=== PATIENT | female | born 1985 | race Caucasian/White ===

== ENCOUNTER 2020-12-24 15:10 | Emergency (ER) | payer OTHER, SELFPAY ==
--- NOTE | 2020-12-24 15:17 | ED.URI ---
HPI - URI/Sore Throat General Chief Complaint: Upper Respiratory Infection Stated Complaint: Upper resp Time Seen by Provider: 12/24/20 15:17 Source: patient and RN notes reviewed History of Present Illness HPI Narrative: Patient is a 35-year-old female who presents the urgent care with complaints of cough, nasal drainage, fatigue, headache, sore throat and body aches since Tuesday. Patient has not taken anything [id number] for her symptoms because she was not sure what she could take with diclofenac . Patient denies of any Covid exposures. No other acute complaints. Acute distress noted. Patient read the plan of care. Some parts of this dictation were generated by voice recognition software and may contain typographical and/or grammatical inaccuracies. Related Data Home Medications Medication Instructions Recorded Confirmed diclofenac potassium 50 mg PO TID 12/24/20 12/24/20 Allergies Allergy/AdvReac Type Severity Reaction Status Date / Time nitrofurantoin Allergy Intermediate Hives Verified 12/24/20 15:35 [From Macrobid] Review of Systems Review of Systems: CONSTITUTIONAL: Reports of fever, chills, fatigue EYES: Denies visual changes, redness, or discharge. ENT: Reports rhinorrhea, nasal congestion, sore throat CARDIOVASCULAR: Denies chest pain, palpitations, or edema. RESPIRATORY: Reports of cough without dyspnea GASTROINTESTINAL: Denies abdominal pain, nausea, vomiting, or diarrhea. GENITOURINARY: Denies dysuria or hematuria. SKIN: Denies rash or itching. MUSCULOSKELETAL: Denies back pain, joint pain. Reports body aches NEUROLOGIC: Reports of headache All other systems reviewed are negative, except as documented in HPI. PMFSH Comments At the time of my signature, I reviewed and agree with the nursing past medical, surgical, social, and family history. There is no relevant family history pertinent to the patient complaint. Exam Narrative: GENERAL: This is a well-nourished, well-developed patient, in no apparent distress. HEAD: normocephalic, atraumatic. EYES: PERRL. Sclera clear/white. Vision is grossly intact. EARS: External ears normal, auditory canals clear and without drainage, TMs normal without perforation. Hearing grossly intact. NOSE: External nose normal with no obvious nasal discharge, nares without redness, no rhinorrhea. THROAT: Mucous membranes moist, posterior pharynx clear. NECK: Neck supple, non-tender without lymphadenopathy, masses or thyromegaly. CARDIOVASCULAR: Regular rate and rhythm without murmurs, gallops, or rubs. RESPIRATORY: Clear to auscultation. Breath sounds equal bilaterally. No wheezes, rales, or rhonchi. SKIN: warm, intact with no suspicious lesions or rash, good texture and turgor. NEURO: awake, alert, and oriented to person, place and time. There were no obvious focal neurologic abnormalities. EXTREMITIES: No clubbing, cyanosis, or edema. Course Vital Signs Vital signs: Vital Signs Temperature 98.3 F 12/24/20 15:21 Pulse Rate 89 12/24/20 15:21 Respiratory Rate 16 12/24/20 15:21 Blood Pressure 129/88 12/24/20 15:21 Pulse Oximetry 99 12/24/20 15:21 Temperature 98.3 F 12/24/20 15:21 Pulse Rate 89 12/24/20 15:21 Respiratory Rate 16 12/24/20 15:21 Blood Pressure 129/88 12/24/20 15:21 Pulse Oximetry 99 12/24/20 15:21 Reviewed MDM - URI/Sore Throat MDM Narrative Medical decision making narrative: Reviewed lab results with the patient. She is aware that Covid swab, flu swab and strep swab were all negative. Educated patient on culture we will call within 72 hours if strep culture is positive and antibiotics necessary. Advised the patient to continue Tylenol as needed. Take a daily antihistamine such as Benadryl/Zyrtec or Claritin. Use Flonase nasal spray for postnasal drainage. Complete the steroid regimen as prescribed. Be sure to eat and drink with the medication. Increase your water intake and rest. Follow-up with your
[2020-12-24 15:21] VITALS: BP 129/88; PULSE 89; RESP 16; TEMP 36.8; O2SAT 99
== END 2020-12-24 16:10 | disposition home or self-care (01) ==
PROVIDERS: Emergency Provider Nurse Practitioner Family
DX: J06.9 Acute upper respiratory infection, unspecified (principal); Z20.822 Contact with and (suspected) exposure to COVID-19
CPT/HCPCS: 87081; 87426; 87804; 87880; 99213; C9803; G0463

== ENCOUNTER 2021-02-22 08:06 | Emergency (ER) | payer OTHER, SELFPAY ==
[2021-02-22 08:14] VITALS: BP 125/69; PULSE 86; RESP 16; TEMP 38.1; O2SAT 99
--- NOTE | 2021-02-22 08:20 | ED.NAVMDI ---
HPI - Nausea/Vomiting/Diarrhea General Chief complaint: Nausea/Vomiting/Diarrhea Stated complaint: poss food poisoning Time Seen by Provider: 02/22/21 08:20 Source: patient, RN notes reviewed and old records reviewed Mode of arrival: ambulatory Limitations: no limitations History of Present Illness HPI Narrative: 35-year-old female who presents to Express Care with complaints of feeling weak, having nausea with vomiting, chills and body aches, headache and some right sided sore throat since yesterday and is febrile at time of triage.Patient states that she can't keep anything down thinks she may have food poisoning. Patient has not had COVID or flu vaccinations.Patient has not taken anything OTC for her symptoms MD elicited complaint: nausea, vomiting and diarrhea Related Data Home Medications Medication Instructions Recorded Confirmed diclofenac potassium 50 mg PO TID 12/24/20 02/22/21 Prozac 02/22/21 Allergies Allergy/AdvReac Type Severity Reaction Status Date / Time nitrofurantoin Allergy Intermediate Hives Verified 02/22/21 08:20 [From Macrobid] latex Allergy Hives Verified 02/22/21 08:21 Review of Systems Review of Systems: CONSTITUTIONAL: Positive for fever, chills, or sweats. EYES: Denies visual changes, redness, or discharge. ENT: Denies rhinorrhea, congestion, mild sore throat, no otalgia. CARDIOVASCULAR: Denies chest pain, palpitations, or edema. RESPIRATORY: Positive cough no dyspnea. GASTROINTESTINAL: Denies abdominal pain,Positive nausea, vomiting, no diarrhea. GENITOURINARY: Denies dysuria or hematuria. SKIN: Denies rash or itching. MUSCULOSKELETAL: Denies back pain, joint pain, positive for body aches NEUROLOGIC: Positive headache,no numbness, or weakness. PSYCHIATRIC: Positive for history of anxiety or depression. All systems reviewed & are unremarkable except as noted in HPI and below PMFSH Past Medical History Medical History (Updated 02/23/21 @ 00:01 by Luisa Hayden) Tendinitis of both feet Surgical History Surgical History (Updated 02/22/21 @ 08:34 by Breanna Briseno NP) History of cervical cerclage Family History Family History (Updated 02/22/21 @ 08:34 by Breanna Briseno NP) Grandparent Cerebrovascular accident Diabetes mellitus Social History Social History (Updated 02/22/21 @ 08:35 by Breanna Briseno NP) Smoking packs per day: 1 Smoking cigarettes per day: 20.0 Years smoked: 20 Smoking pack-years: 20.00 Smoking status: Current every day smoker Alcohol intake: former Alcohol use details: no alcohol for 3 month decided to quit use completely Substance use: current Substance use type: marijuana Last use: occasional use Living arrangements: alone Gender identity (if verbalized by the patient): Female Comments At time of signature, agree with nursing past medical, surgical, social and family history. There is no relevant family history pertinent to the presenting complaint Exam Narrative: GENERAL: Ill-appearing, well-nourished, obese and in no acute distress. HEAD: Normocephalic, atraumatic. EYES: PERRLA and EOMI. ENT: Nares clear, no rhinorrhea or epistaxis. Mucous membranes moist.TM's normal with dull light reflex, throat mild redness with no lesions or exudates, no acute tonsil swelling pain right side of throat stated. NECK: Supple.no lymphadenopathy CHEST: Clear to auscultation. No respiratory distress.SAO2 99% on room air HEART: Regular rate and rhythm. No murmur heard. Normal peripheral pulses. ABDOMEN: Soft, nontender, nondistended, normal active bowel sounds.nausea and vomiting EXTREMITIES: Normal range of motion. No edema. SKIN: Warm, dry, no rash. NEURO: No focal deficits. Alert and oriented x3. Course Course Level of Care: Express Care Visit Vital Signs Vital signs: Vital Signs Temperature 38.1 C H 02/22/21 08:14 Pulse Rate 86 02/22/21 08:14 Respiratory Rate 16 02/22/21 08:14 Blood Pressure 125/69
== END 2021-02-22 08:50 | disposition home or self-care (01) ==
PROVIDERS: Emergency Provider Registered Nurse; PCP Student in an Organized Health Care Education/Training Program
DX: U07.1 COVID-19 (principal); F17.210 Nicotine dependence, cigarettes, uncomplicated; F12.90 Cannabis use, unspecified, uncomplicated
CPT/HCPCS: 87081; 87426; 87804; 87880; 99213; C9803; G0463

== ENCOUNTER 2021-11-26 08:30 | Emergency (ER) | payer OTHER, SELFPAY ==
--- NOTE | ~2021-11-26 | XR_ITS ---
EXAMINATION: XR abdomen/kub 1V DATE: 11/26/2021 09:32 INDICATION: Anterior and right-sided back and flank pain TECHNIQUE: A supine view of the abdomen on 2 radiographs was obtained. COMPARISON: None. FINDINGS: A D projects in expected position of the central pelvis. There are few <2 mm densities in the pelvis most likely representing phleboliths although differential would include distal ureteral stone. No de nsities suspicious for urolithiasis in the more cephalad abdomen. Normal bowel gas pattern. Mild elev ation of left hemidiaphragm. Lung bases are clear. Heart size is normal. IMPRESSION: 1. A few 2 mm densities in the pelvis, all of the majority representing phleboliths, but with differe ntial including distal ureteral stone. 2. IUD Reviewed, dictated and finalized at location A. IMPRESSION: 1. A few 2 mm densities in the pelvis, all of the majority representing phlebol iths, but with differential including distal ureteral stone. 2. IUD
[2021-11-26 08:40] VITALS: BP 135/71; PULSE 71; RESP 16; TEMP 36.4; O2SAT 100
--- NOTE | 2021-11-26 09:16 | ED.FEMALEGU ---
HPI - Female Genitourinary General Chief complaint: Urogenital-Female Stated complaint: Urinary Problem Time Seen by Provider: 11/26/21 09:00 Source: patient, RN notes reviewed and old records reviewed Mode of arrival: ambulatory Limitations: no limitations History of Present Illness HPI Narrative: 36-year-old female who presents to the [facility] care with complaints of right-sided flank pain radiating to right mid abdomen for the past 2 days and has noticed some blood when she wipes after urinating. Patient verbalizes some decreased urination today, no burning or pain with urination.Patient reports that she has no nausea or vomiting or diarrhea, no vaginal discharge or itching or any concerns for STD's. Patient denies any known injury to her back. MD elicited complaint: UTI Onset (ago): day(s) (2) Location of symptoms: low back and flank (right) Severity: severe Severity scale (1-10): 8 Quality of pain: sharp Consistency: constant Related Data Allergies Allergy/AdvReac Type Severity Reaction Status Date / Time nitrofurantoin Allergy Intermediate Hives Verified 11/26/21 09:13 [From [place]] latex Allergy Hives Verified 11/26/21 09:13 Review of Systems Review of Systems: CONSTITUTIONAL: Denies fever, chills, or sweats. CARDIOVASCULAR: Denies chest pain, palpitations, or edema. RESPIRATORY: Denies cough or dyspnea. GASTROINTESTINAL: Denies abdominal pain, nausea, vomiting, or diarrhea. GENITOURINARY: No dysuria, frequency, urgency. Positive right flank pain and some blood noted when wiping after urination SKIN: Denies rash or itching. MUSCULOSKELETAL: Positive right flank area back pain with some radiation to right mid abdomen or myalgia. Positive for right CVA tenderness NEUROLOGIC: Denies headache All systems reviewed & are unremarkable except as noted in HPI and below PMFSH Past Medical History Medical History Tendinitis of both feet Surgical History Surgical History History of cervical cerclage Family History Family History Grandparent Cerebrovascular accident Diabetes mellitus Social History Social History Smoking packs per day: 1 Smoking cigarettes per day: 20.0 Years smoked: 20 Smoking pack-years: 20.00 Smoking status: Current every day smoker Alcohol intake: former Alcohol use details: no alcohol for 3 month decided to quit use completely Substance use: current Substance use type: marijuana Last use: occasional use Gender identity (if verbalized by the patient): Female Comments At time of signature, agree with nursing past medical, surgical, social and family history. There is no relevant family history pertinent to the presenting complaint Exam Narrative: GENERAL: Well-appearing, well-nourished, and in no acute distress. HEAD: Normocephalic, atraumatic. NECK: Supple.no lymphadenopathy CHEST: Clear to auscultation. No respiratory distress. SAO2 100% on room air HEART: Regular rate and rhythm. No murmur heard. Normal peripheral pulses. ABDOMEN: Soft, nontender, nondistended, normal active bowel sounds. right CVA tenderness EXTREMITIES: Normal range of motion. No edema. SKIN: Warm, dry, no rash. NEURO: No focal deficits. Alert and oriented x3. Course Course Emergency Course: Patient is aware of diagnosis, understands and agrees to treatment plan.? Anticipatory guidance given.? Patient agrees to follow-up as directed and is aware of reasons to seek care at the emergency department. Portions of this record may have been created with voice recognition software Level of Care: Express Care Visit Vital Signs Vital signs: Vital Signs Temperature 36.4 C L 11/26/21 08:40 Pulse Rate 71 11/26/21 08:40 Respiratory Rate 16 11/26/21 08:40 Blood Pressure 135/
== END 2021-11-26 10:10 | disposition home or self-care (01) ==
PROVIDERS: Emergency Provider Registered Nurse; PCP Internal Medicine
DX: N39.0 Urinary tract infection, site not specified (principal); N20.9 Urinary calculus, unspecified; F17.210 Nicotine dependence, cigarettes, uncomplicated
CPT/HCPCS: 74018; 81003; 87086; 99213; G0463

== ENCOUNTER 2022-08-31 10:26 | Emergency (ER) | payer OTHER, SELFPAY ==
[2022-08-31 10:34] VITALS: BP 119/78; PULSE 98; RESP 20; TEMP 36.7; O2SAT 98
--- NOTE | 2022-08-31 10:35 | ED.EAR ---
HPI - Ear Problem General Chief complaint: Ear Stated complaint: right ear pain, discharge Source: patient and RN notes reviewed History of Present Illness HPI Narrative: 37 yo F presents to urgent care with complaints of right ear pain, decreased hearing in right ear, and pink-tinged discharge from right ear. Pt states she became congested yeterday and when she blew her nose yesterday, she felt a pop in her right ear. Pt's hearing has been decreased since. Pt states she felt a drainage in her right ear today and went to clean it and noticed a pink-tinged discharge. Denies any fevers, chills, sore throat, or other complaints. Related Data Home Medications Medication Instructions Recorded Confirmed [facility] 08/31/22 Allergies Allergy/AdvReac Type Severity Reaction Status Date / Time nitrofurantoin Allergy Intermediate Hives Verified 11/26/21 09:13 [From Macrobid] latex Allergy Hives Verified 11/26/21 09:13 Review of Systems Review of Systems: CONSTITUTIONAL: Denies fever, chills, or sweats. EYES: Denies visual changes, redness, or discharge. ENT: Right ear pain. Decreased hearing in right ear. congestion CARDIOVASCULAR: Denies chest pain, palpitations, or edema. RESPIRATORY: Denies cough or dyspnea. GASTROINTESTINAL: Denies abdominal pain, nausea, vomiting, or diarrhea. GENITOURINARY: Denies dysuria or hematuria. SKIN: Denies rash or itching. MUSCULOSKELETAL: Denies back pain, joint pain, or myalgia. NEUROLOGIC: Denies headache, numbness, or weakness. Pertinent positives per HPI. [facility] Past Medical History Medical History Tendinitis of both feet Surgical History Surgical History History of cervical cerclage Family History Family History Grandparent Cerebrovascular accident Diabetes mellitus Social History Social History Smoking packs per day: 1 Smoking cigarettes per day: 20.0 Years smoked: 20 Smoking pack-years: 20.00 Smoking status: Current every day smoker Alcohol intake: former Alcohol use details: no alcohol for 3 month decided to quit use completely Substance use: current Substance use type: marijuana Last use: occasional use Living arrangements: alone Gender identity (if verbalized by the patient): Female Comments At the time of my signature, I reviewed and agree with the nursing past medical, surgical, social, and family history. There is no relevant family history pertinent to the patient complaint. Exam Narrative: GENERAL: This is a well-nourished, well-developed patient, in no apparent distress. HEAD: normocephalic, atraumatic. EYES: Sclera clear/white. Vision is grossly intact. EARS: External ears normal. Right TM rupture with bloody discharge. NOSE: Congestion THROAT: Mucous membranes moist, posterior pharynx clear. NECK: Neck supple, non-tender without lymphadenopathy, masses or thyromegaly. CARDIOVASCULAR: Regular rate RESPIRATORY: No respiratory distress SKIN: warm, intact with no suspicious lesions or rash, good texture and turgor. NEURO: awake, alert, and oriented to person, place and time. There were no obvious focal neurologic abnormalities. Course Course Level of Care: Express Care Visit Vital Signs Vital signs: Vital Signs Temperature 98.0 F 08/31/22 10:34 Pulse Rate 98 08/31/22 10:34 Respiratory Rate 20 08/31/22 10:34 Blood Pressure 119/78 08/31/22 10:34 Pulse Oximetry 98 08/31/22 10:34 Oxygen Delivery Room Air 08/31/22 10:34 Temperature 98.0 F 08/31/22 10:34 Pulse Rate 98 08/31/22 10:34 Respiratory Rate 20 08/31/22 10:34 Blood Pressure 119/78 08/31/22 10:34 Pulse Oximetry 98 08/31/22 10:34 Oxygen Delivery Room Air 08/31/22 10:34 reviewed. Medi
== END 2022-08-31 10:56 | disposition home or self-care (01) ==
PROVIDERS: Emergency Provider Nurse Practitioner Family
DX: H72.91 Unspecified perforation of tympanic membrane, right ear (principal); F17.210 Nicotine dependence, cigarettes, uncomplicated
CPT/HCPCS: 99213; G0463

== ENCOUNTER 2022-11-18 13:22 | Outpatient (CLI) | payer OTHER, SELFPAY | END 2022-11-18 13:23 | disposition home or self-care (01) | DX: H69.81 Other specified disorders of Eustachian tube, right ear (principal) | CPT/HCPCS: 92557; 92567 ==

== ENCOUNTER 2023-11-04 09:25 | Emergency (ER) | payer MEDICAID, SELFPAY ==
[2023-11-04 09:34] VITALS: BP 117/76; PULSE 77; RESP 16; TEMP 36.6; O2SAT 99
--- NOTE | 2023-11-04 10:35 | ED.GENADULT ---
HPI - General Adult General Chief complaint: Dental/Oral Stated complaint: Congestion Time Seen by Provider: 11/04/23 09:45 Source: patient, RN notes reviewed and old records reviewed Mode of arrival: ambulatory Limitations: no limitations History of Present Illness HPI narrative: 38-year-old female to Express Care for complaint chills, nasal congestion, cough, sneezing, body aches, left ear pain for 3 days. Patient states she has attempted to take DayQuil, NyQuil, TheraFlu without relief. patient denies fever, difficulty swallowing, sore throat, shortness of breath, chest pain, GI complaints. 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 Patient states that when her symptoms 1st started she thought it may be a dental abscess on the left upper or left lower molar area. Patient able to tolerate fluids by mouth. Patient resting in exam room in no acute distress. Refer respirations even and nonlabored. Patient able to speak in full sentences without difficulty. Related Data Allergies Allergy/AdvReac Type Severity Reaction Status Date / Time nitrofurantoin Allergy Intermediate Hives Verified 11/04/23 10:13 [From Macrobid] latex Allergy Hives Verified 11/04/23 10:13 Review of Systems Review of Systems: All systems reviewed & are unremarkable except as noted in HPI and below Constitutional: Constitutional: Reports as per HPI, Reports body ache(s) and Reports chills Eyes: Eyes: Reports no additional eye complaints ENT: Reports as per HPI, Reports otalgia and Reports nasal congestion Cardiovascular: Cardiovascular: Reports no additional cardiovascular complaints, Denies chest pain and Denies dyspnea Respiratory: Respiratory: Reports no additional respiratory complaints, Reports cough and Denies dyspnea Musculoskeletal: Musculoskeletal: Reports no additional musculoskeletal complaints Neurologic: Reports system reviewed and no additional complaints, except as documented Psychiatric: Psychiatric: Reports no additional psychiatric complaints [facility] Past Medical History Medical History Tendinitis of both feet Surgical History Surgical History History of cervical cerclage Family History Family History Grandparent Cerebrovascular accident Diabetes mellitus Social History Social History Smoking packs per day: 1 Smoking cigarettes per day: 20.0 Years smoked: 20 Smoking pack-years: 20.00 Smoking status: Current every day smoker Alcohol intake: former Alcohol use details: no alcohol for 3 month decided to quit use completely Substance use: current Substance use type: marijuana Last use: occasional use Living arrangements: alone Gender identity (if verbalized by the patient): Female Comments At the time of my signature, I reviewed and agree with the nursing past medical, surgical, social, and family history. There is no relevant family history pertinent to the patient complaint. Exam Const: General: cooperative, no acute distress, alert, tired appearing, uncomfortable and well nourished Nutritional Appearance: well nourished Orientation/consciousness: patient oriented x3 Limitations: no limitations HENMT: Head: normal to inspection Ears: external ears normal and TM abnormal bulging on the left, dull on the left and with loss of landmarks on the left Face/Nose/Sinus: Normal external nose present, Normal nares present, normal facial exam, No erythema and No edema Face and sinus: normal facial exam, no erythema and no edema Mouth: Yes Normal oral and palatal mucosa present Throat: postnasal drainage Eyes: General: appearance normal, both eyes and all related structures Neck: Neck: normal visual inspection, full ROM and no meningea
== END 2023-11-04 10:23 | disposition home or self-care (01) ==
PROVIDERS: Emergency Provider Nurse Practitioner Family; PCP Emergency Medicine
DX: H66.92 Otitis media, unspecified, left ear (principal); F17.210 Nicotine dependence, cigarettes, uncomplicated
CPT/HCPCS: 99213; G0463